=== PATIENT | male | born 1970 | race Caucasian/White ===

== ENCOUNTER 2019-09-28 09:41 | Emergency (ER) | payer SELFPAY ==
[~2019-09-28] VITALS: Ht 188 cm; Wt 95.2 kg
[2019-09-28] MEDS ORDERED: NORCO 5-325 TA1 EACH PO (10:48)
== END 2019-09-28 11:24 | disposition home or self-care (01) ==
LOC: ED 09:41
DX: S22.089A Unspecified fracture of T11-T12 vertebra, initial encounter for closed fracture (principal); W01.0XXA Fall on same level from slipping, tripping and stumbling without subsequent striking against object, initial encounter
CPT/HCPCS: 72100; 96372; 99283-25; J1885